=== PATIENT | female | born 1990 | race Hispanic/Latino ===

== ENCOUNTER 2021-06-05 21:54 | Emergency (ER) | payer MEDICAID, SELFPAY ==
[2021-06-06 15:12] LABS: SARS-CoV-2 PCR by NAA Not Detected (NotDetected)
== END 2021-06-05 22:35 | disposition home or self-care (01) ==
LOC: CSHERS 21:54
DX: O98.53 Other viral diseases complicating the puerperium (principal); B34.9 Viral infection, unspecified; Z20.822 Contact with and (suspected) exposure to COVID-19
CPT/HCPCS: 99283; U0003; U0005